=== PATIENT | female | born 1975 | race Caucasian/White ===

== ENCOUNTER 2019-06-09 18:01 | Outpatient (CLI) | payer SELFPAY ==
--- NOTE | 2019-06-10 07:09 | Ultrasound Report ---
Reason: NON TOXIC GOITER, NON TOXIC THYROID NODULE Procedure Date: 06/09/2019 Accession Number: [id number] / [id number] Procedure: US - Head or Neck Soft Tissue CPT Code: Final Report FULL RESULT: EXAM: THYROID ULTRASOUND EXAM DATE: 06/09/2019 07:01 PM CLINICAL HISTORY: Nontoxic goiter, nontoxic thyroid nodule. COMPARISON: None. TECHNIQUE: Real-time sonographic imaging of the thyroid was performed by the putty remover. Multiple customer success representative static images were saved for review. FINDINGS: THYROID GLAND: Right Lobe: 5.7 x 2.3 x 2.6 cm, volume 18 cc. Normal background echotexture. Right Lobe Nodules: Mildly hyperechoic 1.1 x 0.9 x 1.4 cm midpole nodule. 0.5 cm upper pole cyst. 0.8 x 0.6 x 0.5 cm hypoechoic solid inferior pole nodule. Left Lobe: 5.5 x 2.4 x 2.3 cm, volume 16 cc. Normal background echotexture. Left Lobe Nodules: Heterogeneous hypoechoic partially cystic, partially solid nodule with questionable microcalcifications measuring 1.1 x 1.0 x 1.1 cm. Isthmus: 0.9 cm AP. Isthmic Nodules: The parenchyma appears heterogeneous at the isthmus toward the left. No definite discrete nodule is identified, anterior margin appears mildly nodular without discrete nodule measurable. LYMPH NODES: No adenopathy demonstrated in the central or lateral compartment. OTHER: None. IMPRESSION: The left lobe of the thyroid nodule is intermediate suspicion and warrants tissue sampling by FNA. At the time of FNA, recommend careful study of the isthmus given heterogeneous appearing parenchyma with lobulated contour, recommend tissue sampling by FNA at the discretion of the cold header operator at the time of biopsy. Management recommendations are based on 2015 [place] [employer] Management Guidelines for Adult Patients with Thyroid Nodules and Differentiated Thyroid Cancer. RADIA
== END 2019-06-09 18:02 | disposition home or self-care (01) ==
LOC: DI 18:01
PROVIDERS: ATTEND Family Medicine
DX: E04.2 Nontoxic multinodular goiter (principal)
CPT/HCPCS: 76536

== ENCOUNTER 2020-05-24 16:35 | Outpatient (CLI) | payer OTHER | END 2020-05-24 16:36 | disposition home or self-care (01) | LOC: COV 16:35 | PROVIDERS: ATTEND Family Medicine | DX: R19.7 Diarrhea, unspecified (principal); R11.2 Nausea with vomiting, unspecified; Z20.828 Contact with and (suspected) exposure to other viral communicable diseases ==

== ENCOUNTER 2020-07-18 23:25 | Emergency (ER) | payer SELFPAY ==
--- NOTE | 2020-07-18 23:49 | ED Physician Documentation ---
History of Present Illness - Stated complaint Stated Complaint: LT SHOULDER PAIN - Chief complaint Chief Complaint: Ext Problem - History obtained from History obtained from: Patient - History of Present Illness Timing: Chronic Pain level now: 5 Improved by: rest Worsened by: movement - Additonal information Additional information: patient is right-hand dominant. she has chronic neck pain for which she takes oxycontin with oxycodone for breakthrough pain. She presents c/o 3 months of gradual onset, gradually worsening left shoulder pain. Denies injury. The pain is distinctly worse with movement at left shoulder, particularly abduction and extension. She does not have adequate relief with the prescription medication she currently has. She has an appointment scheduled for 07/29 for evaluation of this shoulder pain. denies weakness, numbness Review of Systems Constitutional: denies: Fever Skin: denies: Rash Musculoskeletal: reports: Neck pain (chronic), Joint pain (left shoulder). denies: Extremity swelling Neurologic: denies: Focal weakness, Numbness PD PAST MEDICAL HISTORY - Past Medical History Past Medical History: Yes Other Past Medical History: chronic neck pain due to injury - Present Medications Home Medications: Ambulatory Orders Medication Instructions Recorded Confirmed Oxycodone HCl [Oxycontin] 20 mg PO TID 07/18/20 07/18/20 oxyCODONE ER [OxyCONTIN] 10 mg PO QID 07/18/20 07/18/20 diazePAM [Valium] 5 mg PO TID PRN #15 tab 07/19/20 predniSONE [Deltasone] 40 mg PO DAILY 4 Days #8 tab 07/19/20 - Allergies Allergies/Adverse Reactions: Allergies Allergy/AdvReac Type Severity Reaction Status Date / Time walnut Allergy Severe Anaphylaxis Verified 07/18/20 23:38 cephalexin [From Keflex] Allergy Intermediate Hives Verified 07/18/20 23:38 levofloxacin [From Levaquin] Allergy Intermediate Hives Verified 07/18/20 23:38 PD ED PE NORMAL - Vitals Vital signs reviewed: Yes - General General: Alert and oriented X 3, No acute distress, Well developed/nourished - Neck Neck: Supple, no meningeal sign, No bony TTP - Derm Derm: Normal color, Warm and dry, No rash - Extremities Extremities: No deformity, No edema, Other (left shoulder: limited abduction and extension due to pain; TTP anterolateral aspects. no erythema, not hot to touch, no fluctuance. brisk capillary refill in fingers with LTS intact and strong radial pulse. 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 This could explain patient's pain and PO steroids prescribed (she prefers to wait until she fills this in the AM, as she anticipates it will make sleeping difficult; she already is having difficulty sleeping due to the shoulder pain). I explained that she should continue to pursue f/u, as further testing might be necessary. She is very open about her current prescriptions and does not want to jeopardize her pain contract, yet she is having difficulty sleeping due to this ongoing and steadily worsening left shoulder pain. I think it reasonable to provide a take-home pack of percocet (four tablets) to be used tonight and tomorrow if necessary, and an rx for valium to help with sleep at night as well as to augment the effect of her current medications. Departure - Departure Disposition: 01 Home, Self Care Clinical Impression: Shoulder pain Qualifiers: Chronicity: acute Laterality: left Qualified Code(s): M25.512 - Pain in left shoulder Condition: Good Instructions: ED Sling, ED Tendinitis Calcific Follow-Up: NADEEM NOGUERA DO [Primary Care Provider] - Within 1 week Prescriptions: predniSONE [Deltasone] 40 mg PO DAILY 4 Days #8 tab diazePAM [Valium] 5 mg PO TID PRN #15 tab PRN Reason: Severe Pain Discharge Date/Time: 07/19/20 01:53
[2020-07-19] MEDS ORDERED: oxyCODONE/ACET 5/325 Prepack 4 PO STA (01:27)
[2020-07-19 01:52] VITALS: BP 124/85
--- NOTE | 2020-07-19 09:08 | XRAY Report ---
PROCEDURE: Shoulder 3 View LT INDICATIONS: left shoulder pain, limited ROM TECHNIQUE: 3 views of the shoulder were acquired. COMPARISON: None. FINDINGS: Bones: No acute fractures or dislocations. No suspicious bony lesions. Visualized ribs appear inta ct. There are degenerative changes of the acromioclavicular joint and glenohumeral joint. Coracoclavi cular and acromioclavicular intervals are maintained. Soft tissues: No suspicious soft tissue calcifications. Soft tissue calcification overlying the sup erolateral left humeral head compatible calcific tendinosis. IMPRESSION: 1. Left shoulder without acute fracture or dislocation. 2. Osteoarthritic changes of the left acromioclavicular and glenohumeral joints. 3. 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 Reviewed by: Joseph Donnelly MD on 07/19/2020 9:07 AM PST Approved by: Joseph Donnelly MD on 07/19/2020 9:07 AM PST Station ID: [id number]
== END 2020-07-19 01:53 | disposition home or self-care (01) ==
LOC: ED 23:25
DX: M75.32 Calcific tendinitis of left shoulder (principal); M54.2 Cervicalgia; G89.29 Other chronic pain
CPT/HCPCS: 99283; 99284